=== PATIENT | male | born 1985 | race Caucasian/White ===

== ENCOUNTER 2022-08-04 16:59 | Inpatient (IN) | payer OTHER ==
[2022-08-04 17:35] VITALS: BMI 22.6
[2022-08-04] MEDS ORDERED: DICYCLOMINE HCL 10 MG CAPSULE PO PRN (17:48)
[2022-08-04] MEDS ORDERED: P-EPHED 60MG/TRIPROLIDI 2.5MG TABLET PO PRN (17:48)
[2022-08-04] MEDS ORDERED: LOPERAMIDE HCL 2 MG CAPSULE PO PRN (17:48)
[2022-08-04] MEDS ORDERED: MAG HYDROX/AL HYDROX/SIMETH 30 ML UNIT-DOSE CUP PO PRN (17:48)
[2022-08-04] MEDS ORDERED: guaiFENesin 200 MG/10 ML 10 ML UNIT-DOSE CUPS PO PRN (17:48)
[2022-08-04] MEDS ORDERED: IBUPROFEN 400 MG TABLET (FP) PO PRN (17:48)
[2022-08-04] MEDS ORDERED: ONDANSETRON *ODT* 4 MG TABLET SL PRN (17:48)
[2022-08-04] MEDS ORDERED: BISMUTH SUBSALICYLATE 524 MG/30 ML PO PRN (17:48)
[2022-08-04] MEDS ORDERED: ACETAMINOPHEN 325 MG TABLET (FP) PO PRN ×2 (17:48)
[2022-08-04] MEDS ORDERED: NALOXONE HCL 0.4 MG/ML VIAL IM PRN (17:48)
[2022-08-04] MEDS ORDERED: MAGNESIUM HYDROX 2400MG/30ML ORAL SUSPENSION 30 ML CUP PO PRN (17:48)
[2022-08-04] MEDS ORDERED: NALOXONE HCL (KLOXXADO) 8 MG SPRAY NS PRN (17:48)
[2022-08-04] MEDS ORDERED: BENZOCAINE/MENTHOL (CHLORASEPTIC ) LOZENGE MM PRN (17:48)
[2022-08-04] MEDS ORDERED: POLYETHYLENE GLYCOL (HEALTHYLAX) 3350 17 GM PACKET PO PRN (17:48)
[2022-08-04] MEDS: diazePAM 5 MG TABLET PO PRN (19:01)
[2022-08-04] MEDS: hydrOXYzine PAMOATE 25 MG CAPSULE (FP) PO PRN (19:04)
[2022-08-04] MEDS: THIAMINE HCL 100 MG TABLET (FP) PO SCH (23:08)
[2022-08-04] MEDS: MELATONIN 5 MG TABLETS PO SCH (23:08)
[2022-08-05] MEDS: METHOCARBAMOL 500 MG TABLET PO PRN ×4 (04:38→23:02)
[2022-08-05] MEDS: diazePAM 5 MG TABLET PO PRN ×5 (04:39→21:00)
[2022-08-05] MEDS: hydrOXYzine PAMOATE 25 MG CAPSULE (FP) PO PRN (06:45)
[2022-08-05] MEDS ORDERED: methaDONE HCL 10 MG TABLET (FOR DETOX USE ONLY) PO ONE (09:15)
[2022-08-05] MEDS: PRENATAL VITAMINS W/ FOLIC ACID TABLET (FP) PO SCH (09:46)
[2022-08-05] MEDS: cloNIDine HCL 0.1 MG TABLET PO PRN ×4 (09:49→23:02)
[2022-08-05] MEDS: NICOTINE 10 MG CARTRIDGE (INHALER) IH PRN ×2 (09:50→20:39)
[2022-08-05 12:36] LABS: BLOOD UREA NITROGEN 8.5 mg/dL (7-18); CALCIUM 10.5 mg/dL (8.5-10.1)
[2022-08-05 12:37] LABS: ALBUMIN 4.8 g/dl (3.4-5.0)
[2022-08-05 12:40] LABS: BILIRUBIN,TOTAL 0.7 mg/dL (0.2-1); TOT PROT 8.3 g/dl (6.4-8.2)
[2022-08-05 13:05] LABS: HEMATOCRIT 45.6 % (35.4-49); HEMOGLOBIN 15.1 GM/dL (11.7-16.9); MCH 29.1 pg (25.7-33.7); MCHC 33.2 g/dl (32.0-35.9); MEAN CELL VOLUME 87.7 fl (80-96); MEAN PLT VOLUME 7.4 fl (7.5-11.1); PLATELET COUNT 323 10^3/uL (134-434); RDW 13.1 % (11.9-15.9)
[2022-08-05] MEDS ORDERED: hydrOXYzine PAMOATE 25 MG CAPSULE (FP) PO ONE (14:13)
[2022-08-05] MEDS: IBUPROFEN 600 MG TABLET (FP) PO PRN (14:16)
[2022-08-05] MEDS: THIAMINE HCL 100 MG TABLET (FP) PO SCH (21:02)
[2022-08-05] MEDS: MELATONIN 5 MG TABLETS PO SCH (21:02)
[2022-08-06] MEDS: diazePAM 5 MG TABLET PO PRN ×6 (01:27→22:15)
[2022-08-06] MEDS: METHOCARBAMOL 500 MG TABLET PO PRN ×2 (05:19→14:09)
[2022-08-06] MEDS: cloNIDine HCL 0.1 MG TABLET PO PRN ×5 (05:19→22:14)
[2022-08-06] MEDS: PRENATAL VITAMINS W/ FOLIC ACID TABLET (FP) PO SCH (10:01)
[2022-08-06] MEDS: NICOTINE 10 MG CARTRIDGE (INHALER) IH PRN (11:11)
[2022-08-06] MEDS: MELATONIN 5 MG TABLETS PO SCH (22:13)
[2022-08-06] MEDS: THIAMINE HCL 100 MG TABLET (FP) PO SCH (22:13)
[2022-08-07] MEDS: METHOCARBAMOL 500 MG TABLET PO PRN ×3 (02:37→22:49)
[2022-08-07] MEDS: diazePAM 5 MG TABLET PO PRN ×3 (02:37→14:53)
[2022-08-07] MEDS: cloNIDine HCL 0.1 MG TABLET PO PRN ×4 (06:10→23:14)
[2022-08-07] MEDS ORDERED: methaDONE HCL 10 MG TABLET (FOR DETOX USE ONLY) PO ONE (10:00)
[2022-08-07] MEDS: PRENATAL VITAMINS W/ FOLIC ACID TABLET (FP) PO SCH (10:03)
[2022-08-07] MEDS: MELATONIN 5 MG TABLETS PO SCH (22:48)
[2022-08-07] MEDS: THIAMINE HCL 100 MG TABLET (FP) PO SCH (22:48)
[2022-08-08] MEDS: diazePAM 5 MG TABLET PO PRN ×4 (08:56→21:22)
[2022-08-08] MEDS: PRENATAL VITAMINS W/ FOLIC ACID TABLET (FP) PO SCH (10:43)
[2022-08-08] MEDS: NICOTINE 10 MG CARTRIDGE (INHALER) IH PRN (11:15)
[2022-08-08] MEDS: MELATONIN 5 MG TABLETS PO SCH (21:23)
[2022-08-08] MEDS: METHOCARBAMOL 500 MG TABLET PO PRN (21:24)
[2022-08-08] MEDS: THIAMINE HCL 100 MG TABLET (FP) PO SCH (21:24)
[2022-08-09] MEDS: diazePAM 5 MG TABLET PO PRN ×6 (02:36→22:43)
[2022-08-09] MEDS ORDERED: methaDONE HCL 10 MG TABLET (FOR DETOX USE ONLY) PO ONE (10:00)
[2022-08-09] MEDS: PRENATAL VITAMINS W/ FOLIC ACID TABLET (FP) PO SCH (10:10)
[2022-08-09] MEDS: METHOCARBAMOL 500 MG TABLET PO PRN (10:11)
[2022-08-09] MEDS: NICOTINE 10 MG CARTRIDGE (INHALER) IH PRN (10:35)
[2022-08-09] MEDS: THIAMINE HCL 100 MG TABLET (FP) PO SCH (22:43)
[2022-08-09] MEDS: MELATONIN 5 MG TABLETS PO SCH (22:44)
[2022-08-10] MEDS: diazePAM 5 MG TABLET PO PRN ×2 (02:54→06:37)
[2022-08-10] MEDS: IBUPROFEN 600 MG TABLET (FP) PO PRN (06:36)
[2022-08-10 09:14] VITALS: BP 122/74; PULSE 111; RESP 16; TEMP 98
== END 2022-08-10 09:15 | disposition home or self-care (01) | DRG 897 ==
LOC: YASAS 16:59 → Y3N 18:17
PROVIDERS: ADMIT Allergy & Immunology; ATTEND Surgery
PROC: HZ2ZZZZ Detoxification Services for Substance Abuse Treatment (ICD-10-PCS; principal; 2022-08-04)
DX: F11.23 Opioid dependence with withdrawal (principal); F13.230 Sedative, hypnotic or anxiolytic dependence with withdrawal, uncomplicated; F17.210 Nicotine dependence, cigarettes, uncomplicated; F19.24 Other psychoactive substance dependence with psychoactive substance-induced mood disorder; R73.9 Hyperglycemia, unspecified; E83.52 Hypercalcemia; Z28.310 Unvaccinated for COVID-19; Z88.0 Allergy status to penicillin; Z87.19 Personal history of other diseases of the digestive system; Z56.0 Unemployment, unspecified
CPT/HCPCS: 36415; 80053; 85027; 86780; 87811; 93005; 93010; C9803-CS; U0003; U0005

== ENCOUNTER 2022-11-07 19:42 | Inpatient (IN) | payer OTHER ==
[2022-11-07 22:47] VITALS: BMI 24.3
[2022-11-07] MEDS ORDERED: BENZOCAINE/MENTHOL (CHLORASEPTIC ) LOZENGE MM PRN (23:37)
[2022-11-07] MEDS ORDERED: BENZONATATE 200 MG CAPSULE PO PRN (23:37)
[2022-11-07] MEDS ORDERED: NALOXONE HCL 0.4 MG/ML VIAL IM PRN (23:37)
[2022-11-07] MEDS ORDERED: IBUPROFEN 400 MG TABLET (FP) PO PRN (23:37)
[2022-11-07] MEDS ORDERED: NICOTINE 10 MG CARTRIDGE (INHALER) IH PRN (23:37)
[2022-11-07] MEDS ORDERED: guaiFENesin 600 MG TABLET.ER (FP) PO PRN (23:37)
[2022-11-07] MEDS ORDERED: POLYETHYLENE GLYCOL (HEALTHYLAX) 3350 17 GM PACKET PO PRN (23:37)
[2022-11-07] MEDS ORDERED: LOPERAMIDE HCL 2 MG CAPSULE PO PRN (23:37)
[2022-11-07] MEDS ORDERED: DICYCLOMINE HCL 10 MG CAPSULE PO PRN (23:37)
[2022-11-07] MEDS ORDERED: ONDANSETRON *ODT* 4 MG TABLET SL PRN (23:37)
[2022-11-07] MEDS ORDERED: MAGNESIUM HYDROX 2400MG/30ML ORAL SUSPENSION 30 ML CUP PO PRN (23:37)
[2022-11-07] MEDS ORDERED: MAG HYDROX/AL HYDROX/SIMETH 30 ML UNIT-DOSE CUP PO PRN (23:37)
[2022-11-07] MEDS ORDERED: BISMUTH SUBSALICYLATE 524 MG/30 ML PO PRN (23:37)
[2022-11-07] MEDS ORDERED: NALOXONE HCL (KLOXXADO) 8 MG SPRAY NS PRN (23:37)
[2022-11-07] MEDS ORDERED: IBUPROFEN 600 MG TABLET (FP) PO PRN (23:37)
[2022-11-08] MEDS: diazePAM 5 MG TABLET PO PRN ×4 (02:18→19:45)
[2022-11-08] MEDS: ACETAMINOPHEN 325 MG TABLET (FP) PO PRN (02:19)
[2022-11-08] MEDS: diazePAM 5 MG TABLET PO SCH ×4 (05:17→22:52)
[2022-11-08] MEDS ORDERED: methaDONE HCL 10 MG TABLET PO SCH (08:30)
[2022-11-08] MEDS: PRENATAL VITAMINS W/ FOLIC ACID TABLET (FP) PO SCH (09:29)
[2022-11-08 12:28] LABS: HEMATOCRIT 39.2 % (35.4-49); HEMOGLOBIN 13.6 GM/dL (11.7-16.9); MCHC 34.7 g/dl (32.0-35.9); MEAN CELL VOLUME 86.4 fl (80-96); MEAN PLT VOLUME 7.1 fl (7.5-11.1); PLATELET COUNT 221 10^3/uL (134-434); RBC 4.54 M/mm3 (4.00-5.60); RDW 12.9 % (11.9-15.9); WHITE BLOOD COUNT 5.7 K/mm3 (4.0-10.0)
[2022-11-08] MEDS ORDERED: NICOTINE 21 MG/24 HOURS TOPICAL PATCH TD SCH (12:30)
[2022-11-08 12:38] LABS: CALCIUM 8.9 mg/dL (8.5-10.1)
[2022-11-08 12:39] LABS: ALBUMIN 3.9 g/dl (3.4-5.0); BLOOD UREA NITROGEN 17.7 mg/dL (7-18)
[2022-11-08 12:42] LABS: CREATININE 0.8 mg/dL (0.55-1.3)
[2022-11-08 12:43] LABS: BILIRUBIN,TOTAL 0.7 mg/dL (0.2-1)
[2022-11-08 12:44] LABS: TOT PROT 6.9 g/dl (6.4-8.2)
[2022-11-08] MEDS: METHOCARBAMOL 500 MG TABLET PO PRN (22:53)
[2022-11-08] MEDS: THIAMINE HCL 100 MG TABLET (FP) PO SCH (22:53)
[2022-11-08] MEDS: MELATONIN 5 MG TABLETS PO SCH (22:53)
[2022-11-08] MEDS: hydrOXYzine PAMOATE 25 MG CAPSULE (FP) PO PRN (22:53)
[2022-11-08] MEDS: NICOTINE POLACRILEX 2 MG GUM BC PRN (23:25)
[2022-11-09] MEDS: diazePAM 5 MG TABLET PO PRN ×4 (02:35→20:42)
[2022-11-09] MEDS: diazePAM 5 MG TABLET PO SCH ×3 (05:56→22:24)
[2022-11-09] MEDS: hydrOXYzine PAMOATE 25 MG CAPSULE (FP) PO PRN ×2 (08:47→16:34)
[2022-11-09] MEDS: PRENATAL VITAMINS W/ FOLIC ACID TABLET (FP) PO SCH (09:04)
[2022-11-09] MEDS: NICOTINE POLACRILEX 2 MG GUM BC PRN (10:41)
[2022-11-09] MEDS: METHOCARBAMOL 500 MG TABLET PO PRN ×2 (13:29→22:24)
[2022-11-09] MEDS: ACETAMINOPHEN 325 MG TABLET (FP) PO PRN (20:43)
[2022-11-09] MEDS: MELATONIN 5 MG TABLETS PO SCH (22:24)
[2022-11-09] MEDS: THIAMINE HCL 100 MG TABLET (FP) PO SCH (22:24)
[2022-11-10] MEDS: hydrOXYzine PAMOATE 25 MG CAPSULE (FP) PO PRN ×3 (01:11→18:53)
[2022-11-10] MEDS: diazePAM 5 MG TABLET PO PRN ×4 (01:12→19:42)
[2022-11-10] MEDS: diazePAM 5 MG TABLET PO SCH ×2 (05:30→17:35)
[2022-11-10] MEDS: PRENATAL VITAMINS W/ FOLIC ACID TABLET (FP) PO SCH (10:30)
[2022-11-10] MEDS ORDERED: cloNIDine HCL 0.1 MG TABLET PO ONE (18:50)
[2022-11-10] MEDS: THIAMINE HCL 100 MG TABLET (FP) PO SCH (22:52)
[2022-11-10] MEDS: METHOCARBAMOL 500 MG TABLET PO PRN (22:52)
[2022-11-10] MEDS: MELATONIN 5 MG TABLETS PO SCH (22:52)
[2022-11-11] MEDS: diazePAM 5 MG TABLET PO PRN ×2 (01:54→10:11)
[2022-11-11] MEDS: hydrOXYzine PAMOATE 25 MG CAPSULE (FP) PO PRN (05:40)
[2022-11-11] MEDS ORDERED: diazePAM 5 MG TABLET PO ONE (06:00)
[2022-11-11 06:06] VITALS: RESP 16
[2022-11-11 09:04] VITALS: BP 111/78; PULSE 80; TEMP 98
[2022-11-11] MEDS: PRENATAL VITAMINS W/ FOLIC ACID TABLET (FP) PO SCH (10:11)
== END 2022-11-11 10:49 | disposition home or self-care (01) | DRG 897 ==
LOC: YASAS 19:42 → Y3N 11-08 01:54
PROVIDERS: ADMIT Allergy & Immunology; ATTEND Surgery
PROC: HZ2ZZZZ Detoxification Services for Substance Abuse Treatment (ICD-10-PCS; principal; 2022-11-08)
DX: F10.230 Alcohol dependence with withdrawal, uncomplicated (principal); F13.20 Sedative, hypnotic or anxiolytic dependence, uncomplicated; F11.23 Opioid dependence with withdrawal; F17.210 Nicotine dependence, cigarettes, uncomplicated; F19.24 Other psychoactive substance dependence with psychoactive substance-induced mood disorder; R03.0 Elevated blood-pressure reading, without diagnosis of hypertension; Z87.19 Personal history of other diseases of the digestive system; Z88.0 Allergy status to penicillin; Z28.310 Unvaccinated for COVID-19; Z28.9 Immunization not carried out for unspecified reason
CPT/HCPCS: 36415; 80053; 85027; 86780; C9803-CS; U0003; U0005